=== PATIENT | male | born 1985 | race Caucasian/White ===

== ENCOUNTER 2022-02-19 11:19 | Emergency (ER) | payer OTHER, SELFPAY ==
--- NOTE | 2022-02-19 11:22 | ED.URI ---
HPI - URI/Sore Throat General Chief Complaint: Upper Respiratory Infection Stated Complaint: sore throat and head congestion Time Seen by Provider: 02/19/22 11:22 Source: patient and RN notes reviewed History of Present Illness HPI Narrative: Patient is a 36-year-old male who presents the urgent care with complaints of sore throat and head congestion. Patient states that started approximately 3 to 4 days ago and he has had 2 negative COVID test. Patient has been taking Neva and DayQuil without much relief. Patient states he does have chronic allergies but was concerned with her worsening sore throat. Denies of any ill contacts and states no one else in the home has been sick. Denies a fever, nausea or vomiting. No other acute complaints. No acute distress noted. Patient aware of the plan of care. Some parts of this dictation were generated by voice recognition software and may contain typographical and/or grammatical inaccuracies. Related Data Allergies Allergy/AdvReac Type Severity Reaction Status Date / Time No Known Allergies Allergy Unverified 12/20/11 18:48 Review of Systems Review of Systems: CONSTITUTIONAL: Denies fever, chills, or sweats. EYES: Denies visual changes, redness, or discharge. ENT: Reports of sore throat and head congestion CARDIOVASCULAR: Denies chest pain, palpitations, or edema. RESPIRATORY: Denies cough or dyspnea. GASTROINTESTINAL: Denies abdominal pain, nausea, vomiting, or diarrhea. GENITOURINARY: Denies dysuria or hematuria. SKIN: Denies rash or itching. MUSCULOSKELETAL: Denies back pain, joint pain, or myalgia. NEUROLOGIC: Denies headache, numbness, or weakness. All other systems reviewed are negative, except as documented in HPI. PMFSH Comments At the time of my signature, I reviewed and agree with the nursing past medical, surgical, social, and family history. There is no relevant family history pertinent to the patient complaint. Exam Narrative: GENERAL: This is a well-nourished, well-developed patient, in no apparent distress. HEAD: normocephalic, atraumatic. Frontal sinus tenderness EYES: PERRL. Sclera clear/white. Vision is grossly intact. EARS: External ears normal, auditory canals clear and without drainage, TMs normal without perforation. Hearing grossly intact. NOSE: External nose normal with no obvious nasal discharge, nares without redness, no rhinorrhea. THROAT: Mucous membranes moist. Mild erythema noted to posterior oropharynx with moderate postnasal drainage NECK: Neck supple CARDIOVASCULAR: Regular rate and rhythm without murmurs, gallops, or rubs. RESPIRATORY: Clear to auscultation. Breath sounds equal bilaterally. No wheezes, rales, or rhonchi. SKIN: warm, intact with no suspicious lesions or rash, good texture and turgor. NEURO: awake, alert, and oriented to person, place and time. There were no obvious focal neurologic abnormalities. EXTREMITIES: No clubbing, cyanosis, or edema. Course Course Level of Care: Express Care Visit Vital Signs Vital signs: Vital Signs Temperature 98.3 F 02/19/22 11:25 Pulse Rate 88 02/19/22 11:25 Respiratory Rate 18 02/19/22 11:25 Blood Pressure 156/75 H 02/19/22 11:25 Pulse Oximetry 99 02/19/22 11:25 Oxygen Delivery Room Air 02/19/22 11:25 Temperature 98.3 F 02/19/22 11:25 Pulse Rate 88 02/19/22 11:25 Respiratory Rate 18 02/19/22 11:25 Blood Pressure 156/75 H 02/19/22 11:25 Pulse Oximetry 99 02/19/22 11:25 Oxygen Delivery Room Air 02/19/22 11:25 Reviewed-patient is informed that they may have pre-hypertension or hypertension based on a blood pressure reading in the department. I recommend the patient call the primary care provider listed on their discharge instructions or a physician of their choice this week to arrange follow-up for further evaluation of possible pre-hypertension or hypertension. MDM - URI/Sore Throat MDM Narrative Medical decision making narrative: Reviewed lab resu
[2022-02-19 11:25] VITALS: BP 156/75; PULSE 88; RESP 18; TEMP 36.8; O2SAT 99
== END 2022-02-19 12:03 | disposition home or self-care (01) ==
PROVIDERS: Emergency Provider Nurse Practitioner Family
DX: J02.9 Acute pharyngitis, unspecified (principal)
CPT/HCPCS: 87081; 87880; 99203; G0463

== ENCOUNTER 2022-07-21 08:56 | Emergency (ER) | payer OTHER, SELFPAY ==
[2022-07-21 09:02] VITALS: BP 138/71; PULSE 95; RESP 16; TEMP 36.8; O2SAT 99
--- NOTE | 2022-07-21 09:41 | ED.URI ---
HPI - URI/Sore Throat General Chief Complaint: Upper Respiratory Infection Stated Complaint: Sore Throat Time Seen by Provider: 07/21/22 09:41 History of Present Illness HPI Narrative: 37-year-old male presenting for complaint of sore throat and swollen glands for 3 days. He denies sinus pressure congestion, cough, shortness of breath, wheezing, nausea, vomiting, diarrhea, fevers or chills. He is taking Tylenol and ibuprofen for symptoms. He endorses his had sore throat last week. Related Data Allergies Allergy/AdvReac Type Severity Reaction Status Date / Time No Known Allergies Allergy Verified 07/21/22 09:39 Review of Systems Review of Systems: CONSTITUTIONAL: Denies body aches, fever, chills, or sweats. EYES: Denies visual changes, redness, or discharge. ENT: Denies rhinorrhea, congestion, or otalgia. CARDIOVASCULAR: Denies chest pain, palpitations, or edema. RESPIRATORY: Denies dyspnea. GASTROINTESTINAL: Denies abdominal pain, nausea, vomiting, or diarrhea. SKIN: Denies rash, itching, or wounds. MUSCULOSKELETAL: Denies back pain, joint pain, or myalgia. NEUROLOGIC: Denies headache Exam Narrative: GENERAL: Ill-appearing, no acute distress. EYES: conjunctivae clear ENT: Mucous membranes moist. TMs pearly eli with normal light reflex bilaterally; no tragal tenderness. Oropharynx erythematous without lesions. No drooling, no hoarseness, no trismus, uvula midline. No tripod positioning, hot potato voice, or soft palate swelling. NECK: Supple. Bilateral anterior cervical lymphadenopathy CHEST: Clear to auscultation, breath sounds equal. No respiratory distress, speaks in full sentences. HEART: Regular rate and rhythm. No murmur heard. SKIN: Warm, dry, no rash. NEURO: Alert and oriented x3. Course Course Emergency Course: Patient is aware of diagnosis, understands and agrees to treatment plan. Anticipatory guidance given. Patient agrees to follow-up as directed and is aware of reasons to seek care at the emergency department. Portions of this record may have been created with voice recognition software Level of Care: Express Care Visit Vital Signs Vital signs: Vital Signs Temperature 98.2 F 07/21/22 09:02 Pulse Rate 95 07/21/22 09:02 Respiratory Rate 16 07/21/22 09:02 Blood Pressure 138/71 07/21/22 09:02 Pulse Oximetry 99 07/21/22 09:02 Oxygen Delivery Room Air 07/21/22 09:02 Temperature 98.2 F 07/21/22 09:02 Pulse Rate 95 07/21/22 09:02 Respiratory Rate 16 07/21/22 09:02 Blood Pressure 138/71 07/21/22 09:02 Pulse Oximetry 99 07/21/22 09:02 Oxygen Delivery Room Air 07/21/22 09:02 MDM - URI/Sore Throat MDM Narrative Medical decision making narrative: POS strep result reviewed with pt. Advise supportive treatments and signs and symptoms go to ER. Patient is appropriate for outpatient treatment and follow-up. Differential Diagnosis Differential diagnosis: Likely upper respiratory infection, viral infection and pharyngitis Lab Data Labs: Strep Screen Positive Group A Strep *(Reference Range: Negative)* Discharge Plan Discharge Clinical Impression: Strep pharyngitis Patient Disposition: Home, Self-Care Condition: Stable Instructions: Antibiotic Form, Strep Throat (ED) Additional Instructions: - Take the antibiotic as directed. Fever and sore throat typically resolve within one to three days. ----Most patients can return to work after 24 hours of antibiotic therapy, provided you are fever free and otherwise well. -Eat and drink things that are easy to swallow, like soft foods, cool liquids, tea with honey, or popsicles . -Salt water gargles and/or may use topical anesthetic ( Chloraseptic spray) or lozenges to relieve dryness or throat pain -Alternate Tylenol and ibuprofen as needed for pain and fever as directed. -Frequent hand washing or hand metal molder is one of
== END 2022-07-21 09:56 | disposition home or self-care (01) ==
PROVIDERS: Emergency Provider Nurse Practitioner Family
DX: J02.0 Streptococcal pharyngitis (principal)
CPT/HCPCS: 87880; 99213; G0463

== ENCOUNTER 2025-02-07 17:40 | Emergency (ER) | payer OTHER, SELFPAY ==
--- OUTSIDE RECORDS SUMMARY | 2025-02-07 17:41 | XMS_ITS | Encounter Summary ---
Author Organization [employer] Address 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
--- OUTSIDE RECORDS SUMMARY | 2025-02-07 17:41 | XMS_ITS | Clinical Summary ---
Author Organization [employer] [facility] Address [address] 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
--- OUTSIDE RECORDS SUMMARY | 2025-02-07 17:41 | XMS_ITS | Clinical Summary ---
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 Gender Identity Not on file Sexual Orientation Not on file Plan of Treatment Health Maintenance Due Date Last Done Comments Annual Physical 1986 Hepatitis C 2001 DTaP, Tdap and Td Vaccines ( 1 - Tdap) 2002 Hepatitis B Vaccines (1 of 3 - 19+ 3-dose series) 2002 COVID-19 Vaccine (3 - 2023-2 5 season) 2024 11/12/2020, 10/22/2020 HPV Vaccines Aged Out No longer eligi ble based on patient's age to complete this topic Meningococcal B Vaccine Aged Out No l onger eligible based on patient's age to complete this topic Meningococcal Vaccine Aged Out No wiley sharri eligible based on patient's age to complete this topic Pneumococcal Vaccine: Pediatrics (0 to 5 Years) and At-Risk Patients (6 to 49 Years) Aged Out No longer eligible b ased on patient's age to complete this topic RSV Immunizations Under 20 Months Aged Out No longer eligible b ased on patient's age to complete this topic
--- OUTSIDE RECORDS SUMMARY | 2025-02-07 17:41 | XMS_ITS | Clinical Summary ---
Author Organization [facility] Address [address] [address] Phone Care Team Providers Care Cheese Maker Name Role Phone Emma Henriquez Unavailable [phone] Emma Henriquez Primary Care Provider + Ev Morejon APRN, SKATES OPERATOR Unavailable [phone] Ev Morejon APRN, SKATES OPERATOR Unavailable [phone] Allergies No known active allergies Medications Fluticasone Propionate (FLONASE NA) by Nasal route. Active famotidine (PEPCID) 40 MG Tablet Take 1 Tablet by mouth every evening. 60 Tablet 11/07/2020 Active fexofenadine (MURIEL) 180 MG Tablet Take 180 mg by mouth daily. Active amLODIPine (NORVASC) 5 MG TabletIndication s:Hypertension, unspecified type TAKE 1 TABLET BY MOUTH DAILY 90 Tablet 1 10/24/2024 Active Active Problems Problem Noted Date Diagnosed Date DARRYN (obstructive sleep apnea) 03/08/2023 Class 1 obesity due to exces s calories without serious comorbidity with body mass index (BMI) of 31.0 to 31.9 in adult 12/07/2022 Dislocated intraocular lens Overview (08/01/2015): right eye Resolved Problems Problem Noted Date Diagnosed Date Resolved Date Has daytime drowsiness 12/07/202208/26 Suspected sleep apnea 12/07/20222022 Immunizations Immunization Administration Dates Next Due Covid-19, Mrna, Lnp-s, Pf, 3 0 Mcg/0.3 Ml Dose (Pfizer) 10/22/2020 Influenza Vaccine 09/04/2012 Influenza Vaccine greater than 3 yrs 06/01/2015 06/01/2016 Influenza Vaccine, Quadrivalent, PF 08/11/2022 Influenza, Injectable, Quadrivalent 06/20/2016,1 Influenza, Seasonal, Injectable, Undefined 06/01 TDAP Vaccine 10/17/2023 Tetanus Toxoid, Unspecified Formulation 08/22/19 12 Social History Tobacco Use Types Packs/Day Years Used Date Smoking Tobacco: Never Smokeless Tobacco: Never Tobacco Cessation:Counseling Given: Not Answered Alcohol Use Standard Drinks/Week Comments Yes 2 (1 standard drink = 0.6 oz pur e alcohol) [facility] People Operating Technologyities Answer Date Recorded In the past 12 months has Vided[employer], [employer], oil, or water [email or web address] threatened to shut off services in your home? No 04/16/2024 Social Connection and Isolation Panel Answer Date Recorded In a typical week, how many times do you talk on the phone with family, friends, or neighbors? More than three times a week 04/16/2024 How often do you get togethe r with friends or relatives? Twice a week 04/16/2024 [facility] attend [facility] or [facility] services? Patient declined 04/16/2024 Do you belong to any clubs o r organizations such as zoroastrianism groups, unions, fraternal or athletic groups, or school groups? Yes 04/16/2024 How often do you attend meet ings of the clubs or organizations you belong to? 1 to 4 times per year 04/16/2024 Are you , , di vorced, , never , or living with a partner? 04/16/2024 AUDIT-C Answer Date Recorded Q1: How often do you have a drink containing alc ohol? 2-4 times a month 04/16/2024 Q2: How many drinks containi ng alcohol do you have on a typical day when you are drinking? 3 or 4 04/16/2024 Q3: How often do you have si x or more drinks on one occasion? Never 04/16/2024 Overall Financial Resource Strain (CARDIA) Answe r Date Recorded How hard is it for you to pa y for the very basics like food, housing, medical care, and heating? Not hard at all 04/16/2024 PHQ-2 Answer Date Recorded Total Score - Questions 1-9 0 09/23 [facility] - Occupational Stress Questionnaire Answer Date Recorded Do you feel stress - tense, restless, nervous, or anxious, or unable to sleep at night because your mind is troubled all the time - these days? Not at all 04/16/2024 Exercise Vital Sign Answer Date Recorde d On average, how many days pe r week do you engage in moderate to strenuous exercise (like a brisk walk)? 1 day 04/16/2024 On average, how many minutes do you engage in exercise at this level? 30 min 04/16/2024 Hunger Vital Sign Answer Date Recorded Within the past 12 months, y ou worried that your food would run out before you got the money to buy more. Never true 04/16/20 24 Within the past 12 months, t he food you bought just didn't last and you didn't have money to get more. Never true 04/16/2024 PRAPARE - Transportation Answer Date Re corded In the past 12 months, has l ack of transportation kept you from medical appointments or from getting medications? No 03/23 In the past 12 months, has l ack of transportation kept you from meetings, work, or from getting things needed for daily living? No 04/16/2024 Housing Stability Vital Sign Answer Hugh e Recorded In the last 12 months, was t here a time when you were not able to pay the mortgage or rent on time? No 10/17/2023 Number of Places Lived in the Last Year Not on f ile 10/17/2023 In the last 12 months, was t here a time when you did not have a steady place to sleep or slept in a care home (including now)? No 10/17/2023 Housing Stability Vital Sign Answer Hugh e Recorded In the last 12 months, was t here a time when you were not able to pay the mortgage or rent on time? No 04/16/2024 Number of Times Moved in the Last Year Not on fi le 04/16/2024 At any time in the past [address] [facility], were you homeless or living in a care home (including now)? No 04/16/2024 Education Answer Date Recorded What is the highest level of school you have completed or the highest degree you have received? Master's degree (e.g., MA, MS, Anand, MEd, NATURAL GAS TRADER, THERESA) 04/14/2023 Sexually Active Control Partners Comments Yes Sex and Gender Information Value Date Recorded Sex Assigned at Not on file Legal Sex Male 11:27 PM CDT Gender Identity Not on file Sexual Orientation Not on file Last Filed Vital Signs Vital Sign Reading Time Taken Comments Blood Pressure 128/74 04/16/2024 9:38 AM CDT Pulse 67 04/16/2024 9:38 AM CDT Temperature 36.6 C (97.8 F) 04/16/2024 9:38 AM CDT Respiratory Rate 14 03/08/2023 8:10 AM CDT Oxygen Saturation 98% 04/16/2024 9:38 AM CDT Inhaled Oxygen Concentration - - Weight 95.7 kg (211 lb) 04/16/2024 9:38 AM CDT Height 172.7 cm (5' 8) 04/16/2024 9:38 AM CDT Body Mass Index 32.08 04/16/2024 9:38 AM CDT Plan of Treatment Upcoming Encounters Date Type Department Care Team (Late st Contact Info) Description 03/22/2025 8:30 AM CDT Telemedicine [facility] - Pulmonology & Sleep Medicine [facility] [address] [place] [id number] Ev Morejon, HUMZA, SKATES OPERATOR [address] [address] Health Maintenance Due Date Last Done Comments Human Papillomavirus (HPV) Immunization (1 - Male 3-dose series) 1998 Hepatitis B Immunization (1 of 3 - 19+ 3-dose series) 2002 SARS-COV-2 Immunization ( season) 2024 04/04/2022, 11/12/2020, 10/22/2020 Influenza Immunization (Season Ended) 2025 08/11/2022, 06/20/2016, 06/10/2015, Additional history exists Td Immunization Every 10 Years (Adults With 1 Tdap) 10/17/2033 10/17/2023 Respiratory Syncytial Virus (RSV) Immunization (Adult) (1 - 1-dose 75+ series) 2058 DTaP/Tdap/Td Immunization Discontinued 10/17/2023 Hepatitis C Virus (HCV) Screening Discontinued Meningococcal Immunization (ACWY) Aged Out No longer eligible based on patient's age to complete this topic Pneumococcal Immunization Combined Aged Out No longer eligible based on patient's age to complete this topic Rotavirus Immunization Aged Out No lo nger eligible based on patient's age to complete this topic Insurance [facility]NA [facility] Care Teams Cheese Maker Relationship Specialty Start Date End Date Emma Henriquez PAC [address] [place] [address] PCP - General Physician Transit Worker 11/07/20 Emma Henriquez PAC [address] [place] [address] Physician Transit Worker Physician Transit Worker 11/05/20 Ev Morejon APRN, [place] [address] [address] Nurse Practitioner Advanced Practice Nurse 12/07/22 Ev Morejon APRN, [place] [address] [address] Nurse Practitioner Advanced Practice Nurse 08/26/23
[2025-02-07 17:44] VITALS: BP 157/90; PULSE 89; RESP 20; TEMP 36.6; O2SAT 98
[2025-02-07] MEDS: TETANUS,DIPHTHERIA,AC PERTUSSIS ADULT (0.5 ML) BOOSTRIX IM (18:11)
--- NOTE | 2025-02-07 18:38 | ED.GENADULT ---
HPI - General Adult General Chief complaint: Extremity Injury, Upper Stated complaint: lac on left thumb Source: patient Mode of arrival: ambulatory Limitations: no limitations History of Present Illness HPI narrative: Patient presents for evaluation of laceration to the left thumb that occurred just prior to arrival. He was cutting chicken for dinner when he cut his left thumb in the process. He denies considerable pain. No loss of ROM or paresthesias, He is right hand dominant. He is not UTD on tetanus. Related Data Home Medications ?Medication ?Instructions ?Recorded ?Confirmed ?Last Taken ?Type amlodipine 5 mg tablet mg 02/07/25 Unknown History Allergies Allergy/AdvReac Type Severity Reaction Status Date / Time No Known Allergies Allergy Verified 02/07/25 17:58 Review of Systems Review of Systems: CONSTITUTIONAL: Denies fever, chills, or sweats. EYES: Denies visual changes, redness, or discharge. ENT: Denies rhinorrhea, congestion, sore throat, or otalgia. CARDIOVASCULAR: Denies chest pain, palpitations, or edema. RESPIRATORY: Denies cough or dyspnea. GASTROINTESTINAL: Denies abdominal pain, nausea, vomiting, or diarrhea. GENITOURINARY: Denies dysuria or hematuria. SKIN: Reports laceration to the left thumb MUSCULOSKELETAL: Denies back pain, joint pain, or myalgia. NEUROLOGIC: Denies headache, numbness, dizziness, or weakness. PSYCHIATRIC: Denies anxiety or depression. [facility] Past Medical History Medical History No pertinent past medical history Surgical History Surgical History No pertinent past surgical history Family History Family History Mother Family history non-contributory Social History Social History Alcohol intake: current Alcohol use details: social Substance use: never Living arrangements: with family Gender identity (if verbalized by the patient): Male Sexual Orientation (if Verbalized by the Patient): Straight or Heterosexual Spiritual care concerns: No Exam Narrative: GENERAL: Well-appearing, well-nourished, and in no acute distress. HEAD: Normocephalic, atraumatic. EYES: PERRLA and EOMI. ENT: Nares clear, no rhinorrhea or epistaxis. Mucous membranes moist. Oropharynx without tonsillar hypertrophy exudate or other lesions. Bilateral TMs pearly eli nonbulging NECK: Supple. No adenopathy or masses. No carotid bruits or JVD CHEST: Clear to auscultation. No respiratory distress. No wheezes rales or rhonchi HEART: Regular rate and rhythm. No murmur heard. Normal peripheral pulses. ABDOMEN: Soft, nontender, nondistended, normal active bowel sounds. EXTREMITIES: Normal range of motion. No edema. SKIN: There is a 1.5 cm laceration in a semi-flap formation to the left thumb. NEURO: No focal deficits. Alert and oriented x3. PSYCH: Normal mood and affect. Course Course Emergency Course: This is a 39-year-old male who presented for evaluation of a laceration to left thumb. Wound was thoroughly irrigated and closed with 5 sutures. Patient tolerated well. He is updated on tetanus. Advised on wound care. Provided with splint. Pt tolerated well. Follow up with primary provider. Go to the ER for evidence of infection. Patient in agreement with plan of care Level of Care: Express Care Visit Vital Signs Vital signs: Vital Signs Temperature 36.6 C 02/07/25 17:44 Pulse Rate 89 02/07/25 17:44 Respiratory Rate 02/07/25 17:44 Blood Pressure 157/90 H 02/07/25 17:44 Pulse Oximetry 98 02/07/25 17:44 Oxygen Delivery Room Air 02/07/25 17:44 Temperature 36.6 C 02/07/25 17:44 Pulse Rate 89 02/07/25 17:44 Respiratory Rate 02/07/25 17:44 Blood Pressure 157/90 H 02/07/25 17:44 Pulse Oximetry 98 02/07/25 17:44 Oxygen Delivery Room Air 02/07/25 17:44 Procedures Laceration Laceration 1: Date: 02/07/25 Time: 19:14 Site: other (left thumb) Side (If applicable): left Size (cm): 1.5 Local Anesthetic: lidocaine 1% Amount of anesthesia used (mL): 6 Pre-repair: wound explored and irrigated ====== Skin Level ====== Skin layer closed with: nylon Size (cm): 5-0 Number of sutures: 5 Technique: simple, interrupted ====== Subcutaneous Layer ====== ====== Muscle Layer ====== ====== Tendon Layer ====== Orthopedic Splinting/Casting Injury #1: Splinting/Casting Date: 02/07/25 Splinting/Casting Time: 19:15 Side: left Upper Extremity Injury Location: finger Splint: prefabricated Pre-Formed: metal foam finger splint Medical Decision Making Vital Signs Vital Signs: Vital Signs Temperature 36.6 C 02/07/25 17:44 Pulse Rate 89 02/07/25 17:44 Respiratory Rate 02/07/25 17:44 Blood Pressure 157/90 H 02/07/25 17:44 Pulse Oximetry 98 02/07/25 17:44 Oxygen Delivery Room Air 02/07/25 17:44 Temperature 36.6 C 02/07/25 17:44 Pulse Rate 89 02/07/25 17:44 Respiratory Rate 20 02/07/25 17:44 Blood Pressure 157/90 H 02/07/25 17:44 Pulse Oximetry 98 02/07/25 17:44 Oxygen Delivery Room Air 02/07/25 17:44 Discharge Plan Discharge Clinical Impression: Laceration of thumb Patient Disposition: Home Condition: Stable Instructions: Antibiotic Form, Care For Your Stitches (ED), Finger Laceration (ED) Patient Language: Ivorian Prescriptions: No Action amlodipine 5 mg tablet Follow-up/Referrals: Florence,LEANNE Ayala [Primary Care Provider] - Time of Disposition: 19:17
[2025-02-07] MEDS: LIDOCAINE 1% LOCAL INJ 2 ML AMPUL 4 ML INFILTRATE (18:40)
== END 2025-02-07 19:20 | disposition home or self-care (01) ==
PROVIDERS: Emergency Provider Nurse Practitioner; PCP Physician Assistant
DX: S61.012A Laceration without foreign body of left thumb without damage to nail, initial encounter (principal); W45.8XXA Other foreign body or object entering through skin, initial encounter; Z23 Encounter for immunization
CPT/HCPCS: 12001; 90471; 90715; 99212; G0463; J2003